=== PATIENT | female | born 1965 | race Two or more races ===

== ENCOUNTER 2023-03-31 06:50 | Day surgery (SDC) | payer OTHER ==
[~2023-03-31 06:50] MED LIST: B-COMPLEX1 EACH PO; CLONAZEPAM0.5 MG PO; ECHINACEA400 MG PO; PROBIO PO; VITAMIN B-121000 MC4 PO; VITAMIN D3 PO
[2023-03-31] MEDS ORDERED: PERCOCET 5-3251 EACH PO (10:02)
[2023-03-31] MEDS ORDERED: TRAMADOL HCL50 MG PO (10:05)
== END 2023-03-31 13:25 | disposition home or self-care (01) ==
LOC: CIR.AMB 06:50
PROVIDERS: ATTEND Surgery
DX: C73 Malignant neoplasm of thyroid gland (principal); Z20.822 Contact with and (suspected) exposure to COVID-19